=== PATIENT | male | born 1980 | race Caucasian/White ===

== ENCOUNTER 2019-05-04 05:11 | Observation (INO) ==
[2019-05-04] MEDS ORDERED: 0.9 % Sodium Chloride 1,000 ML ONE (06:40)
[2019-05-04] MEDS ORDERED: 0.9 % Sodium Chloride 1,000 ML IVC SCH (06:45)
--- NOTE | 2019-05-04 08:08 | Acute Care Surgery H&P ---
Date of Encounter: 05/04/19 Time of Encounter: 07:15 Assessment and Plan (1) Acute calculous cholecystitis Current Visit: No Status: Acute The assessment and plan as outlined above was discussed with the patient and/or family members who expressed understanding and agreement. All questions were answered. Pt diagnosis of acute cholecystitis with cholelithiasis is discussed. Laparoscopic Cholecystectomy is recommended. Procedure for the surgery, risks and benefits are discussed in detail. Possible known complications for Laparoscopic Cholecystectomy are bleeding, infection, bile duct injury, bile leak, small intestine or stomach injury, stroke, DVT/PE, NC or . Pt understands these risks, which in this case are low. Pt wishes to proceed with surgery as soon as possible. Informed consent is obtained. Pt condition is stable. Surgery is scheduled. (2) HTN (hypertension) Current Visit: Yes Status: Acute The assessment and plan as outlined above was discussed with the patient and/or family members who expressed understanding and agreement. All questions were answered. Continue home meds. Qualifiers: Qualified Code(s): I10 - Essential (primary) hypertension History of Present Illness Chief complaint: RUQ abdominal pain HPI: Mr. Ji is a 38 year old male pt who presents to [facility] ED complaining of RUQ abdominal pain. Pt reports pain is severe and unrelenting. Pain begain two days ago. Pt reports the pain is progressively worsening. Pt reports pain radiates to back and up to right shoulder. Pt reports associated nausea and vomiting. Pt denies CP or SOB. Denies fever. He denies previous "gallbladder attack" in the past. Past Med Surg Social Fam HX - Past Medical History Medical history: arthritis, hypertension Psychiatric history: depression - Past Surgical History Surgical History: herniorrhaphy - Social History Smoking Status: Never smoker Smokeless Tobacco Status: No Alcohol use: none Drug use: none, other Medications and Allergies Allopurinol [Zyloprim 100 MG] 100 mg PO DAILY 04/29/19 [History] HydrOXYzine Pamoate [Vistaril] 50 mg PO Q4-6H PRN #20 capsule 04/29/19 [Rx] Lisinopril [Zestril] 10 mg PO DAILY 04/29/19 [History] Omeprazole 20 mg PO DAILY #14 tablet. 04/29/19 [Rx] Allergy/AdvReac Type Severity Reaction Status Date / Time No Known Allergies Allergy Verified 04/29/19 05:38 Review of Systems All systems PM: The remainder of the systems were reviewed and are negative - Constitutional as per HPI, no anorexia, no chills, no excessive sweating, no fatigue, no fever(s), no malaise, no night sweats, no weakness - EENT Nose, mouth and throat: no dry mouth, no dysphagia, no nasal congestion, no nasal discharge, no sinus pain, no sinus pressure, no sore throat - Cardiovascular no chest pain, no diaphoresis, no dyspnea, no edema - Respiratory no cough, no dyspnea, no wheezing - Gastrointestinal abdominal pain, belching, bloating, nausea, vomiting, no constipation, no di arrhea, no heartburn - Genitourinary no dysuria, no flank pain, no urinary frequency - Musculoskeletal back pain, no joint swelling, no limited range of motion, no neck pain - Integumentary no dry skin, no pruritus, no rash, no wounds, no jaundice - Neurological no confusion, no dizziness, no weakness - Psychiatric anxiety, depression, other (hx of opiate abuse) - Endocrine no fatigue - Hematologic/Lymphatic no easy bleeding, no easy bruising General Surgery Exam Initial Vital Signs Temp Pulse Resp BP Pulse Ox 98.1 F 73 14 117/73 96 05/04/19 07:11 05/04/19 07:11 05/04/19 07:11 05/04/19 07:11 05/04/19 07:11 - General physical appearance no distress, moderate pain (controlled). negative: jaundice - Eyes PERRL, normal ocular movement. negative: icteric - ENT normal mucosa, no congestion. negative: nasal discharge - Neck no masses, trachea midline, no lymphadectomy, no venous distension - Respiratory normal respiratory effort, clear to auscultation - Cardiovascular Cardiovascular exam: Present: RRR. Absent: murmurs - Abdomen Abdomen general surgery: Present: bowel sounds present, soft, tender. Absent: guarding, rebound Abdominal Tenderness: Present: RUQ - Genitourinary Present: normal penis with no external lesions - Integumentary Integumentary general surgery: Present: warm and dry - Neurologic Present: CN 2-12 grossly intact, normal coordination - Musculoskeletal Present: normal posture - Psychiatric Psychiatric general surgery: Present: A&Ox3, appropriate Results - Labs All other labs normal. - Imaging CT scan - abdomen: image reviewed (ABD CT reveals acute cholecystitis) CT scan - pelvis: image reviewed
[2019-05-04] MEDS: Ampicillin/Sulbactam 3,000 MG in 0.9 % Sodium Chloride Mini Bag 100 ML IVPB SCH ×3 (10:23→23:00)
[2019-05-04] MEDS ORDERED: Bupivacaine/EPI 1:200k 0.5%PF 30 ML VIAL ONE (11:41)
[2019-05-04] MEDS ORDERED: Lidocaine -MPF 4% 5 ML AMPUL ONE (11:51)
[2019-05-04] MEDS ORDERED: *HR* Rocuronium Bromide 50 MG/5 ML VIAL ONE (11:51)
[2019-05-04] MEDS ORDERED: Ondansetron 4 MG/2 ML VIAL ONE (11:51)
[2019-05-04] MEDS ORDERED: *HR* Succinylcholine 200 MG/10 ML VIAL IVP ONE (11:51)
[2019-05-04] MEDS ORDERED: Lidocaine -MPF 2% 2 ML VIAL ONE (11:51)
[2019-05-04] MEDS ORDERED: *HR* Propofol 200 MG/20 ML VIAL IVP ONE (11:51)
[2019-05-04] MEDS ORDERED: Dexamethasone 4 MG/ML VIAL ONE (11:51)
[2019-05-04] MEDS ORDERED: *HR* Midazolam HCl 2 MG/2 ML VIAL ONE (11:52)
[2019-05-04] MEDS ORDERED: *HR* FentaNYL (PF) 100 MCG/2 ML VIAL ONE ×2 (11:52→13:22)
[2019-05-04] MEDS ORDERED: Acetaminophen IV 1,000 MG/100 ML INFUS..BTL IVPB SCH (12:00)
[2019-05-04] MEDS ORDERED: Acetaminophen IV 1,000 MG/100 ML INFUS..BTL ONE (12:23)
--- NOTE | 2019-05-04 12:25 | Anesthesia Evaluation PreOp ---
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 04/29/19 [Rx] Allergy/AdvReac Type Severity Reaction Status Date / Time No Known Allergies Allergy Verified 04/29/19 05:38 - Meds/Allergy Pre-op Review Medications Reviewed: Yes Allergies Reviewed: Yes Beta Blockers on Current Med List: No Anesthesia Results - Labs Laboratory Tests 04/29/19 05/04/19 05/04/19 05:53 02:55 02:55 WBC 8.8 Hgb 13.0 D Hct 39.0 Plt Count 211 PT 12.1 INR 1.1 APTT 33.9 Sodium 135 L Potassium 4.2 Chloride 102 Carbon Dioxide 27 BUN 15 Creatinine 0.92 Est GFR ( Amer) > 60 Est GFR (Non-Af Amer) > 60 BUN/Creatinine Ratio 16 Glucose 124 H Calculated Osmolality 282 Calcium 8.8 - Imaging EKG: report reviewed, image reviewed (Sinus rhythm Diffuse ST elevation, early repol pattern or acute pericarditis) Anesthesia Exam Last Vital Signs Temp 97.7 F 05/04/19 10:26 Pulse 73 05/04/19 10:26 Resp 14 05/04/19 10:26 BP 126/76 05/04/19 10:26 Pulse Ox 99 05/04/19 10:26 Weight: 118 kg NPO (# of Hours): > 8 hrs - HEENT Pupil (Motor): Pupils equal, EOMI Mallampati: III Teeth: Normal Oral Opening: Greater than 3 - COMPLIANCE FIELD TECHNICIAN LOC: Oriented - Cardiac Rhythm: Regular Murmur: None - Pulmonary Breath Sounds: bilateral Clear Respiratory Effort: Symmetrical Anesthesia Assess/Plan ASA Score: 3 Level of consciousness: Cooperative Anesthetic Plan: General Monitoring Plan: Standard Monitors Recovery Plan: PACU
[2019-05-04] MEDS ORDERED: *HR* FentaNYL (PF) 100 MCG/2 ML VIAL IVP PRN (12:30)
[2019-05-04] MEDS ORDERED: *HR* Promethazine 25 MG/ML VIAL IVP PRN (12:30)
[2019-05-04] MEDS ORDERED: traMADol 50 MG TABLET PO PRN (12:30)
[2019-05-04] MEDS ORDERED: Isovue-300 50 ML VIAL ONE (12:45)
[2019-05-04] MEDS ORDERED: Ketorolac 30 MG/ML VIAL ONE (13:10)
[2019-05-04] MEDS ORDERED: Neostigmine Methylsulfate 3 MG/3 ML SYRINGE ONE (13:10)
--- NOTE | 2019-05-04 15:01 | Operative Note ---
Date of procedure: 05/04/19 Pre-op diagnosis: Acute cholecystitis with cholelithiasis Post-op diagnosis: same Procedure: Laparoscopic cholecystectomy with attempted intraoperative cholangiogram Complications: None Anesthesia: GETA Surgeon: Ramya Carlson Was there an teaching assistant present: No Estimated blood loss (cc): 150 Specimen: Gallbladder Condition: stable Disposition: PACU Procedure in Detail: This 38 y/o male was taken to the operating room and placed in the supine position. Anterior abdominal wall prepped and draped in usual sterile fashion. A 2 cm incision was made in the infraumbilical area and subcutaneous tissues are dissected down to anterior rectus fascia. Fascia is grasped with a Nargis clamp and stay sutures are placed. The fascia is divided. Posterior rectus fascia and peritoneum were elevated and divided in the same manner. Oksana port is inserted and pneumoperitoneum was achieved. Patient was placed in reverse Trendelenburg position and rotated to the left. Three 5 mm ports are inserted in the right subcostal space under direct visualization after injection of 0.5% Marcaine. Exploration of the intra-abdominal cavity reveals a severely enlarged and indurated gallbladder that is acutely inflammed. The gallbladder is grasped and retracted in cephalad direction. The adherent and edematous omentum is bluntly dissected off of the gallbladder capsule. The gallbladder is grasped and retracted in the lateral direction. The cystic duct was carefully identified, circumferentially dissected, clipped near the neck of the gallbladder. The lumen of the cystic duct is obliterated and it is detemined that a cholangiocatheter would not pass. The IOC part of the operation is foregone. The cystic duct is then double clipped and divided between clips. The cystic artery is also carefully identified and circumferentially dissected. There are both anterior and posterior branches. Each branch is doubly clipped and divided between clips. The gallbladder is resected off the liver bed using electrocautery. Hemostasis was perfected using electrocautery and 3 g of Olu after irrigation. The gallbladder is removed from the intra-abdominal cavity using an Endo Catch bag. The facial incision and skin incision had to be extended to accomodate the removal of the very large GB. Copious irrigation was carried out in the gallbladder fossa and Vazquez's pouch. Pneumoperitoneum was allowed to escape. All ports are removed under direct visualization. The extended fascial incision at the infraumbilical area was closed using 3 [id number] 0 Vicryl sutures. All skin incisions are closed using 4-0 Mo nocryl subcuticular stitches. Steri-Strips are placed. Sterile Band-Aids are placed. Patient tolerated procedure well was taken to PACU in good condition.
--- NOTE | 2019-05-04 15:21 | Anesthesia Evaluation Post Op ---
Date of Encounter: 05/04/19 Time of Encounter: 15:20 - Vital Signs Vital Signs: Last Vital Signs Temp 97.6 F 05/04/19 15:14 Pulse 62 05/04/19 15:14 Resp 16 05/04/19 15:14 BP 149/93 05/04/19 15:14 Pulse Ox 100 05/04/19 15:14 - Lungs Lungs: Clear Ascult./Percussion - Airway Airway: Non-obstructed - Cardiovascular Regular Rate - Mental Status Mental Status: Alert & Oriented, Answers Appropriately - Pain Pain Scale: 3 - Nausea Vomiting Nausea Vomiting: Not Present - Hydration Hydration: NPO - Discharge PostOp Status: Transfer Patient to floor
[2019-05-04] MEDS ORDERED: Ondansetron 4 MG/2 ML VIAL IVP PRN (16:01)
[2019-05-04] MEDS ORDERED: hydrOXYzine pamoate 25 MG CAPSULE PO PRN (16:01)
[2019-05-04] MEDS: traMADol 50 MG TABLET PO PRN ×2 (16:43→22:59)
[2019-05-04] MEDS: Acetaminophen IV 1,000 MG/100 ML INFUS..BTL IVPB SCH ×2 (18:29→22:59)
[2019-05-04] MEDS: 0.9 % Sodium Chloride 1,000 ML IVC SCH (20:16)
[2019-05-04] MEDS ORDERED: Ketorolac 15 MG/ML VIAL IVP PRN (20:34)
[2019-05-04] MEDS ORDERED: Ketorolac 30 MG/ML VIAL IVP ONE (20:34)
[2019-05-05] MEDS: Ampicillin/Sulbactam 3,000 MG in 0.9 % Sodium Chloride Mini Bag 100 ML IVPB SCH ×5 (05:12→23:11)
[2019-05-05] MEDS: Acetaminophen IV 1,000 MG/100 ML INFUS..BTL IVPB SCH ×4 (05:12→21:04)
[2019-05-05] MEDS: traMADol 50 MG TABLET PO PRN (07:58)
[2019-05-05] MEDS ORDERED: *HR* OxyCODONE Oral Soln 5 MG/5 ML UD.LIQ PO ONE (08:12)
[2019-05-05 10:31] LABS: Basophils % 0.1 %; Hematocrit 35.7 % (37.5-50.1); Hemoglobin 11.7 g/dL (12.9-16.9); Immature Granulocytes % 0.4 % (0-4); Lymphocytes # 0.8 K/mcL (0.6-4.6); Lymphocytes % 4.4 %; Mean Corpuscular HGB Conc 32.8 g/dL (31.6-35.5); Mean Corpuscular Hemoglobin 29.3 pg (28.0-33.3); Mean Corpuscular Volume 89.5 fL (83.0-100.0); Mean Platelet Volume 10.4 fL (9.4-12.4); Monocytes # 1.4 K/mcL (0.0-1.3); Monocytes % 7.6 %; Neutrophils # 16.5 K/mcL (1.6-8.9); Platelet Count 210 K/mcL (140-400); Red Blood Count 3.99 M/mcL (4.19-5.50); Red Cell Distribution Width 12.4 % (11.5-14.5); Segmented Neutrophils % 87.5 %; White Blood Count 18.9 K/mcL (4.3-11.1)
[2019-05-05 10:50] LABS: Alanine Aminotransferase 189 Units/L (7-52); Albumin 3.2 g/dL (3.5-5.7); Alkaline Phosphatase 150 Units/L (34-104); Aspartate Amino Transferase 94 Units/L (13-39); BUN/Creatinine Ratio 19 (6-26); Bilirubin,Direct 0.3 mg/dL (0.0-0.2); Bilirubin,Indirect 0.5 mg/dL (0.0-1.2); Bilirubin,Total 0.8 mg/dL (0.3-1.0); Blood Urea Nitrogen 19 mg/dL (6-20); Calcium 8.3 mg/dL (8.6-10.3); Carbon Dioxide 26 mEq/L (23-29); Chloride 101 mEq/L (98-107); Globulin 3.1 g/dL (2.4-3.5); Glucose 135 mg/dL (70-105); Osmolality,Calculated 284 (280-300); Potassium 4.6 mEq/L (3.5-5.1); Sodium 135 mEq/L (136-145); Total Protein 6.3 g/dL (6.4-8.9); eGFR For African Americans > 60 (> 60); eGFR For Non-African Americans > 60 (> 60)
[2019-05-05] MEDS ORDERED: hydrOXYzine pamoate 25 MG CAPSULE PO PRN (11:53)
--- NOTE | 2019-05-05 14:26 | AcuteCareSurgery Progress Note ---
<Sharon Cartwright - Last Filed: 05/05/19 14:37> Date of Encounter: 05/05/19 Time of Encounter: 14:22 - Assessment and Plan (1) Acute calculous cholecystitis Current Visit: No Status: Acute Presented with complaint of right upper quadrant abdominal pain Postop day 1 for laparoscopic cholecystectomy Leukocytosis at 18.9 Antibiotic coverage-Unasyn Pain control-Toradol, tramadol, Ofirmev Consult to anesthesiology for possible block as patient is in recovery for narcotics abuse Nothing by mouth for possible block, patient to resume regular diet afterwards. Increase ambulation We will repeat labs in the morning Plan on discharge tomorrow (2) HTN (hypertension) Current Visit: Yes Status: Acute Continue home medication lisinopril Qualifiers: Hypertension type: essential hypertension Qualified Code(s): I10 - E ssential (primary) hypertension (3) History of substance abuse Current Visit: Yes Status: Acute Patient has a history of opioid abuse He presented from a treatment facility and will return there on discharge, is unable to bring pain medications there after being discharged Will plan on discharge with Tylenol, Motrin Patient will need a list of any controlled substances administered during admission on discharge summary. (4) Gout Current Visit: Yes Status: Chronic History of gout, continue home medication allopurinol Qualifiers: Gout site: unspecified site Gout etiology: unspecified cause Chronicity: chronic Presence of tophus: without tophus Qualified Code(s): M1A.9XX0 - Chronic gout, unspecified, without tophus (tophi) (5) GERD (gastroesophageal reflux disease) Current Visit: Yes Status: Chronic History of GERD Continue home medication omeprazole Qualifiers: Esophagitis presence: without esophagitis Qualified Code(s): K21.9 - Gastro-esophageal reflux disease without esophagitis (6) DVT prophylaxis Current Visit: Yes Status: Acute SCDs Subjective Narrative: Patient seen and examined at bedside today. His pain is well controlled. He is currently in a treatment program for narcotic addiction. He has previously stated that he does not want any opiate medications and will need a list of any opiate medications to report back to his facility on discharge. Discussed pain management options with the patient, he has agreed to one dose of sublingual oxycodone at this time. His facility was contacted and states that they do have a policy that no pain medications be allowed on the premises. Consult to anesthesiology for possible block. Will keep patient today for pain control and discharged tomorrow on Motrin, Tylenol. He states that pain is 8 out of 10, located in right upper quadrant. He is tolerating diet well. He has not yet passed flatus. He denies fever, chills, nausea, vomiting, chest pain, shortness breath, dysuria, calf pain. Objective Vital Signs - Last 8 Hours Temp Pulse Resp BP Pulse Ox 05/05/19 12:11 98.4 F 80 14 120/69 95 05/05/19 07:44 99.2 F 79 15 111/67 96 Intake and Output 05/04/19 05/05/19 05/05/19 23:59 07:59 15:59 Intake Total 1400 / 1400 200 / 300 100 / 300 Output Total 1000 / 1150 Balance 400 / 250 200 / 300 100 / 300 Intake: IV Fluids 1400 / 1400 200 / 300 100 / 300 0.9 % Sodium Chloride 1,000 ML 1000 / 1000 @ 75 mls/hr IVC .[id number] [facility] Rx #:[id number] Ofirmev 1,000 mg/100 ml 1,000 200 / 200 100 / 200 100 / 200 mg In 100 ml @ 400 mls/hr IVPB Q6HR [facility]I Rx#:[id number] Unasyn 3,000 MG In 0.9 % Sodium 200 / 200 100 / 100 Chloride (Mini-Bag +) 100 ML @ 200 mls/hr IVPB Q6H [facility]I Rx#: [id number] Oral 0 / 0 Output: Urine 1000 / 1000 Other: # Voids 2 0 # Bowel Movements 0 0 - General physical appearance well developed, well nourished, moderate distress (Secondary to pain) - Eyes PERRL, normal ocular movement - ENT normal mucosa, no congestion - Neck Neck exam: trachea midline, no venous distension - Respiratory normal expansion, normal respiratory effort, clear to auscultation - Cardiovascular Cardiovascular exam: Present: RRR, no murmurs/rubs/gallops. Absent: JVD - Abdomen Abdomen: Present: bowel sounds present, soft, tender. Absent: guarding, rebound Abdominal Tenderness: RUQ - Incision Incision: Present: clean and dry, intact - Integumentary no rash, no abnormal pigmentation - Neurologic normal coordination, normal sensation - Musculoskeletal normal posture - Psychiatric oriented to time, oriented to person, oriented to place, speech is normal, memory intact - Labs 05/05/19 10:22 05/05/19 10:22 Diabetes panel 05/05/19 Range/Units 10:22 Sodium 135 L (136-145) mEq/L Potassium 4.6 (3.5-5.1) mEq/L Chloride 101 (98-107) mEq/L Carbon Dioxide 26 (23-29) mEq/L BUN 19 (6-20) mg/dL Creatinine 0.98 (0.70-1.30) mg/dL Glucose 135 H (70-105) mg/dL Calcium 8.3 L (8.6-10.3) mg/dL AST 94 H (13-39) Units/L ALT 189 H (7-52) Units/L Alkaline Phosphatase 150 H (34-104) Units/L Albumin 3.2 L (3.5-5.7) g/dL Calcium panel 05/05/19 Range/Units 10:22 Calcium 8.3 L (8.6-10.3) mg/dL Albumin 3.2 L (3.5-5.7) g/dL Pituitary panel 05/05/19 Range/Units 10:22 Sodium 135 L (136-145) mEq/L Potassium 4.6 (3.5-5.1) mEq/L Chloride 101 (98-107) mEq/L Carbon Dioxide 26 (23-29) mEq/L BUN 19 (6-20) mg/dL Creatinine 0.98 (0.70-1.30) mg/dL Glucose 135 H (70-105) mg/dL Calcium 8.3 L (8.6-10.3) mg/dL Adrenal panel 05/05/19 Range/Units 10:22 Sodium 135 L (136-145) mEq/L Potassium 4.6 (3.5-5.1) mEq/L Chloride 101 (98-107) mEq/L Carbon Dioxide 26 (23-29) mEq/L BUN 19 (6-20) mg/dL Creatinine 0.98 (0.70-1.30) mg/dL Glucose 135 H (70-105) mg/dL Calcium 8.3 L (8.6-10.3) mg/dL Total Bilirubin 0.8 (0.3-1.0) mg/dL AST 94 H (13-39) Units/L ALT 189 H (7-52) Units/L Alkaline Phosphatase 150 H (34-104) Units/L Albumin 3.2 L (3.5-5.7) g/dL - VTE Reasons for not Prescribing Prophylaxis: Treatment not Indicated - Low risk for VTE Consult Discharge Plan - Plan Instructions: Laparoscopic Cholecystectomy (DC) Additional Instructions: General Surgical Discharge Instructions 1. No pushing, pulling, or lifting greater than 15 lbs for 3 weeks. 2. You may shower beginning today, but no tub baths, soaking, or swimming for 2 weeks. 3. You may resume driving when you are off narcotics and are safe to react in a car. 4. Take ibuprofen every 8 hours for discomfort. If this does not relieve discomfort, you may take the as needed Percocet. Take narcotics as directed. Do not take more narcotics then directed and do not share your narcotics with any other person. Do not drink alcohol while on narcotics. 5. Take stool softeners (Colace) or a water based laxative (Miralax) while taking narcotics. You may hold for loose stools. 6. Report any fevers greater than 100.5F, increase abdominal discomfort, drainage that looks like pus, increased redness or pain at the surgical site, or any vomiting. 7. Report any pain in the calves, shortness of breath, or rapid heartbeat. 8. Follow-up in the office as directed. 9. If you were prescribed antibiotics, do not stop them without talking to your provider. Referrals: Ramya Renteria [Partnered Physician] - 05/26/19 8:20 am NONE,PCP [Primary Care Provider] - <Micah Castaneda - Last Filed: 05/05/19 16:48> Date of Encounter: 05/05/19 Objective Vital Signs - Last 8 Hours Temp Pulse Resp BP Pulse Ox 05/05/19 15:38 98.0 F 81 16 110/66 94 05/05/19 12:11 98.4 F 80 14 120/69 95 Intake and Output 05/05/19 05/05/19 05/05/19 07:59 15:59 23:59 Intake Total 200 / 500 300 / 500 Balance 200 / 500 300 / 500 Intake: IV Fluids 200 / 500 300 / 500 Ofirmev 1,000 mg/100 ml 1,000 100 / 300 200 / 300 mg In 100 ml @ 400 mls/hr IVPB Q6H [facility]I Rx#:[id number] Unasyn 3,000 MG In 0.9 % Sodium 100 / 200 100 / 200 Chloride (Mini-Bag +) 100 ML @ 200 mls/hr IVPB Q6H [facility]I Rx#: [id number] Oral 0 / 0 Other: # Voids 2 0 # Bowel Movements 0 0 - Labs 05/05/19 10:22 05/05/19 10:22 Diabetes panel 05/05/19 Range/Units 10:22 Sodium 135 L (136-145) mEq/L Potassium 4.6 (3.5-5.1) mEq/L Chloride 101 (98-107) mEq/L Carbon Dioxide 26 (23-29) mEq/L BUN 19 (6-20) mg/dL Creatinine 0.98 (0.70-1.30) mg/dL Glucose 135 H (70-105) mg/dL Calcium 8.3 L (8.6-10.3) mg/dL AST 94 H (13-39) Units/L ALT 189 H (7-52) Units/L Alkaline Phosphatase 150 H (34-104) Units/L Albumin 3.2 L (3.5-5.7) g/dL Calcium panel 05/05/19 Range/Units 10:22 Calcium 8.3 L (8.6-10.3) mg/dL Albumin 3.2 L (3.5-5.7) g/dL Pituitary panel 05/05/19 Range/Units 10:22 Sodium 135 L (136-145) mEq/L Potassium 4.6 (3.5-5.1) mEq/L Chloride 101 (98-107) mEq/L Carbon Dioxide 26 (23-29) mEq/L BUN 19 (6-20) mg/dL Creatinine 0.98 (0.70-1.30) mg/dL Glucose 135 H (70-105) mg/dL Calcium 8.3 L (8.6-10.3) mg/dL Adrenal panel 05/05/19 Range/Units 10:22 Sodium 135 L (136-145) mEq/L Potassium 4.6 (3.5-5.1) mEq/L Chloride 101 (98-107) mEq/L Carbon Dioxide 26 (23-29) mEq/L BUN 19 (6-20) mg/dL Creatinine 0.98 (0.70-1.30) mg/dL Glucose 135 H (70-105) mg/dL Calcium 8.3 L (8.6-10.3) mg/dL Total Bilirubin 0.8 (0.3-1.0) mg/dL AST 94 H (13-39) Units/L ALT 189 H (7-52) Units/L Alkaline Phosphatase 150 H (34-104) Units/L Albumin 3.2 L (3.5-5.7) g/dL - Attending Attestation I examined this patient and my medical decision-making was reviewed with the Resident Physician. I agree with the documented findings, disposition and treatment plan as described except to the extent set forth below. The patient is seen and evaluated on morning rounds with the acute care surgery team. He has very poor pain control. Using a narcotic treatment program and has refused any narcotics. We have maximized nonnarcotic care. We did an extended conversation about this. The patient agrees with limited use of narcotics to control his acute pain and then transition back to nonnarcotic therapy. Incisions are clean and dry. Micah Castaneda MD FACS
--- NOTE | 2019-05-05 14:42 | Event Note ---
Date of Encounter: 05/05/19 Time of Encounter: 14:40 Spoke with Parker, (counselor at [facility]). Per Parker, we will need to call him at number above when patient d/c's tomorrow as he must pick the patient up and transport to rehab center. Pt will need a list with specific date, time, medication, and administration of any narcotics since admission. He should be d/c'd on scheduled ibuprofen and tylenol only. No controlled substances are permitted in rehab.
[2019-05-05] MEDS: Ketorolac 30 MG/ML VIAL IVP SCH ×3 (15:03→23:10)
[2019-05-05] MEDS: 0.9 % Sodium Chloride 1,000 ML IVC SCH (19:52)
[2019-05-06] MEDS: Acetaminophen IV 1,000 MG/100 ML INFUS..BTL IVPB SCH ×2 (03:09→09:17)
[2019-05-06] MEDS: Ketorolac 30 MG/ML VIAL IVP SCH (05:23)
[2019-05-06] MEDS: Ampicillin/Sulbactam 3,000 MG in 0.9 % Sodium Chloride Mini Bag 100 ML IVPB SCH (05:23)
[2019-05-06 05:30] LABS: Basophils % 0.3 %; Eosinophils # 0.1 K/mcL (0.0-0.6); Eosinophils % 1.2 %; Hematocrit 33.8 % (37.5-50.1); Hemoglobin 10.9 g/dL (12.9-16.9); Immature Granulocytes % 0.4 % (0-4); Lymphocytes # 1.4 K/mcL (0.6-4.6); Lymphocytes % 13.2 %; Mean Corpuscular HGB Conc 32.2 g/dL (31.6-35.5); Mean Corpuscular Hemoglobin 29.6 pg (28.0-33.3); Mean Corpuscular Volume 91.8 fL (83.0-100.0); Mean Platelet Volume 10.9 fL (9.4-12.4); Monocytes # 0.9 K/mcL (0.0-1.3); Monocytes % 8.8 %; Platelet Count 199 K/mcL (140-400); Red Blood Count 3.68 M/mcL (4.19-5.50); Red Cell Distribution Width 12.8 % (11.5-14.5); Segmented Neutrophils % 76.1 %; White Blood Count 10.5 K/mcL (4.3-11.1)
[2019-05-06 06:42] LABS: Alanine Aminotransferase 165 Units/L (7-52); Albumin/Globulin Ratio 1.1 (1.1-2.2); Alkaline Phosphatase 144 Units/L (34-104); Aspartate Amino Transferase 91 Units/L (13-39); BUN/Creatinine Ratio 20 (6-26); Bilirubin,Total 0.6 mg/dL (0.3-1.0); Blood Urea Nitrogen 24 mg/dL (6-20); Calcium 8.2 mg/dL (8.6-10.3); Carbon Dioxide 30 mEq/L (23-29); Chloride 102 mEq/L (98-107); Globulin 2.8 g/dL (2.4-3.5); Glucose 113 mg/dL (70-105); Osmolality,Calculated 293 (280-300); Potassium 4.2 mEq/L (3.5-5.1); Sodium 139 mEq/L (136-145); Total Protein 5.8 g/dL (6.4-8.9); eGFR For African Americans > 60 (> 60); eGFR For Non-African Americans > 60 (> 60)
[2019-05-06 06:52] VITALS: BP 105/67
--- NOTE | 2019-05-06 07:53 | Discharge Summary ---
<Sharon Cartwright - Last Filed: 05/06/19 09:19> - NOTES TO OUTPATIENT PROVIDER Notes to Outpatient Provider: Patient underwent laparoscopic cholecystectomy on 05/04/19. New medications include ciprofloxacin for 5 days, Motrin, Tylenol. Patient to follow-up with acute care surgery in 2 weeks. Orders not resulted at time of discharge: Pending orders 05/04/19 13:03 Surgical Pathology [PTH] Routine Date of Encounter: 05/06/19 Time of Encounter: 07:53 - Discharge Diagnosis (1) Acute calculous cholecystitis Priority: Primary Status: Acute (2) HTN (hypertension) Priority: Secondary Status: Acute Qualifiers: Hypertension type: essential hypertension Qualified Code(s): I10 - Essential (primary) hypertension (3) History of substance abuse Priority: Secondary Status: Acute (4) Gout Priority: Secondary Status: Chronic Qualifiers: Gout site: unspecified site Gout etiology: unspecified cause Chronicity: chronic Presence of tophus: without tophus Qualified Code(s): M1A.9XX0 - Chronic gout, unspecified, without tophus (tophi) (5) GERD (gastroesophageal reflux disease) Priority: Secondary Status: Chronic Qualifiers: Esophagitis presence: without esophagitis Qualified Code(s): K21.9 - Gastro-esophageal reflux disease without esophagitis (6) DVT prophylaxis Priority: Secondary Status: Acute General Surgery Exam Initial Vital Signs Temp Pulse Resp BP Pulse Ox 98.1 F 73 14 117/73 96 05/04/19 07:11 05/04/19 07:11 05/04/19 07:11 05/04/19 07:11 05/04/19 07:11 - General physical appearance well developed, well nourished, no distress - Eyes PERRL, normal ocular movement - ENT normal nares, normal mucosa, no congestion - Neck trachea midline, no venous distension - Respiratory normal expansion, normal respiratory effort, clear to auscultation - Cardiovascular Cardiovascular exam: Present: RRR, no murmurs/rubs/gallops. Absent: JVD - Abdomen Abdomen general surgery: Present: bowel sounds present, soft, tender Abdominal Tenderness: Present: RUQ (Mild) - Incision Incision: Present: clean and dry, intact. Absent: erythema - Integumentary Integumentary general surgery: Present: warm and dry, no abnormal pigmentation - Neurologic Present: CN 2-12 grossly intact, normal coordination, normal sensation - Musculoskeletal Present: normal gait, normal posture - Psychiatric Psychiatric general surgery: Present: appropriate, oriented to person, oriented to place, oriented to time, speech is normal, memory intact - Hospital Course Hospital course: Mr. Ji is a 38 year old male who presented with chief complaint of right upper quadrant abdominal pain. He has a past medical history of opiate abuse, he is currently undergoing treatment at [facility], hypertension, gout, depression, GERD. He was afebrile on presentation and labs were significant for leukocytosis of 18.9 as well as mildly increased direct bilirubin, AST, ALT, alkaline phosphatase and phosphatase. Abdominal CT was performed which revealed a distended gallbladder with wall thickening and at least one large gallstone suggestive of acute cholecystitis. The patient was adamant that he did not want any narcotics over his admission as he is currently in recovery. The patient was admitted, started on Unasyn, and taken to the OR for a laparoscopic cholecystectomy with attempted intraoperative cholangiogram on 05/04/19. The patient did well postoperatively however on postoperative day one his pain was not controlled and he agreed to one dose of oxycodone. Anesthesiology was contacted and attempt to have a pain block performed however they were unable to do this. The patient's leukocytosis resolved, WBC currently 10.5. Vital signs are stable and the patient is well for discharge back to his facility. New medications include Motrin, Tylenol, ciprofloxacin. Patient to follow up with Dr. Bennie Carlson in 2 weeks. - Time Spent with Patient Total time spent providing and/or coordinating discharge services: - Discharge Medications Prescriptions: New Ciprofloxacin [Cipro] 500 mg PO BID 5 Days #10 tablet Ibuprofen [Motrin] 800 mg PO Q8HR 5 Days #15 tablet Acetaminophen [Tylenol] 325 mg PO Q4HR #30 tablet Continued Allopurinol [Zyloprim 300 MG] 300 mg PO DAILY Lisinopril [Zestril] 10 mg PO DAILY Omeprazole 20 mg PO DAILY #14 tablet. HydrOXYfernie Pamoate [Vistaril] 50 mg PO Q4-6H PRN #20 capsule PRN Reason: Rash Home Medications: HydrOXYzine Pamoate [Vistaril] 50 mg PO Q4-6H PRN #20 capsule 04/29/19 [Rx] Lisinopril [Zestril] 10 mg PO DAILY 04/29/19 [History] Omeprazole 20 mg PO DAILY #14 tablet. 04/29/19 [Rx] Allopurinol [Zyloprim 300 MG] 300 mg PO DAILY 05/04/19 [History] Acetaminophen [Tylenol] 325 mg PO Q4HR #30 tablet 05/06/19 [Rx] Ciprofloxacin [Cipro] 500 mg PO BID 5 Days #10 tablet 05/06/19 [Rx] Ibuprofen [Motrin] 800 mg PO Q8HR 5 Days #15 tablet 05/06/19 [Rx] Allergies/Adverse Reactions: Allergy/AdvReac Type Severity Reaction Status Date / Time No Known Allergies Allergy Verified 04/29/19 05:38 Date of admission: 05/04/19 06:19 Primary care physician: PCP NONE Consults: 05/04/19 07:48 Consult to Pattern Repair Person [CONS] Stat Reason for SW Consult: needs access to laptop to contact family 05/05/19 11:47 Consult to Anesthesiology [CONS] Stat Consulting Provider: [facility] [place] Reason for Consult: postoperative pain control (possible block); pt is recovering narcotic additction and wishes to not have narcotics but it in pain. He cannot d/c on any controlled substances/ Reviewed with [employer]ER who recommends consult placement for possible block per anesthesiology. Time Notified: 11:49 Call Completed: Yes Discharging clinician: Sharon Cartwright Anticipated date of discharge: 05/06/19 Labs on day of discharge: Labs from last 24 hours 05/06/19 05/06/19 05/05/19 04:47 04:47 10:22 WBC 10.5 RBC 3.68 L Hgb 10.9 L Hct 33.8 L MCV 91.8 MCH 29.6 MCHC 32.2 RDW 12.8 Plt Count 199 MPV 10.9 Immature Gran % 0.4 Seg Neutrophils % 76.1 Lymphocytes % 13.2 Monocytes % 8.8 Eosinophils % 1.2 Basophils % 0.3 Neutrophils # 8.0 Lymphocytes # 1.4 Monocytes # 0.9 Eosinophils # 0.1 Basophils # 0.0 Sodium 139 135 L Potassium 4.2 4.6 Chloride 102 101 Carbon Dioxide 30 H 26 BUN 24 H 19 Creatinine 1.19 0.98 Est GFR ( Amer) > 60 > 60 Est GFR (Non-Af Amer) > 60 > 60 BUN/Creatinine Ratio 20 19 Glucose 113 H 135 H Calculated Osmolality 293 284 Calcium 8.2 L 8.3 L Total Bilirubin 0.6 0.8 Direct Bilirubin 0.3 H Indirect Bilirubin 0.5 AST 91 H 94 H ALT 165 H 189 H Alkaline Phosphatase 144 H 150 H Serum Total Protein 5.8 L 6.3 L Albumin 3.0 L 3.2 L Globulin 2.8 3.1 Albumin/Globulin Ratio 1.1 1.0 L 05/05/19 10:22 WBC 18.9 H D RBC 3.99 L Hgb 11.7 L Hct 35.7 L MCV 89.5 MCH 29.3 MCHC 32.8 RDW 12.4 Plt Count 210 MPV 10.4 Immature Gran % 0.4 Seg Neutrophils % 87.5 Lymphocytes % 4.4 Monocytes % 7.6 Eosinophils % 0.0 Basophils % 0.1 Neutrophils # 16.5 H Lymphocytes # 0.8 Monocytes # 1.4 H Eosinophils # 0.0 Basophils # 0.0 Sodium Potassium Chloride Carbon Dioxide BUN Creatinine Est GFR ( Amer) Est GFR (Non-Af Amer) BUN/Creatinine Ratio Glucose Calculated Osmolality Calcium Total Bilirubin Direct Bilirubin Indirect Bilirubin AST ALT Alkaline Phosphatase Serum Total Protein Albumin Globulin Albumin/Globulin Ratio - Patient Status Disposition: Home, Self-Care Condition: Good Functional capacity at discharge: independent ambulation Overall status at discharge: patient is progressing back to baseline - Discharge Instructions Instructions: Chest Pain (DC), Laparoscopic Cholecystectomy (DC) Follow Up With: Ramya Renteria [Partnered Physician] - 05/26/19 8:20 am Sharon Cartwright MD [Resident] - Additional Instructions: General Surgical Discharge Instructions 1. No pushing, pulling, or lifting greater than 15 lbs for 3 weeks. 2. You may shower beginning today, but no tub baths, soaking, or swimming for 2 weeks. 3. You may resume driving when you are off narcotics and are safe to react in a car. 4. Take ibuprofen every 8 hours for discomfort. If this does not relieve discomfort, you may take the as needed Percocet. Take narcotics as directed. Do not take more narcotics then directed and do not share your n arcotics with any other person. Do not drink alcohol while on narcotics. 5. Take stool softeners (Colace) or a water based laxative (Miralax) while taking narcotics. You may hold for loose stools. 6. Report any fevers greater than 100.5F, increase abdominal discomfort, drainage that looks like pus, increased redness or pain at the surgical site, or any vomiting. 7. Report any pain in the calves, shortness of breath, or rapid heartbeat. 8. Follow-up in the office as directed. 9. If you were prescribed antibiotics, do not stop them without talking to your provider. Narcotics received over admission Ultram 100 mg given 05/04/19 at 7:58 AM Fentanyl 100 g 05/04/19 at 12:30 PM Oxycodone 10 mg 05/05/19 at 8:13 AM Also received: Midazolam 2mg 05/04/19 11:53 am Ketamine 50 mg 05/04/19 12:24 pm - Diet and Activity Activity: resume usual activities as tolerated Diet: advance to your usual diet <Keaton Chand - Last Filed: 05/06/19 17:00> Orders not resulted at time of discharge: Pending orders 05/04/19 13:03 Surgical Pathology [PTH] Routine Date of Encounter: 05/06/19 General Surgery Exam Initial Vital Signs Temp Pulse Resp BP Pulse Ox 98.1 F 73 14 117/73 96 05/04/19 07:11 05/04/19 07:11 05/04/19 07:11 05/04/19 07:11 05/04/19 07:11 - Hospital Course Hospital course: Mr. Ji is a 38 year old male - Time Spent with Patient Total time spent providing and/or coordinating discharge services: Date of admission: 05/04/19 06:19 Primary care physician: PCP NONE Consults: 05/04/19 07:48 Consult to Pattern Repair Person [CONS] Stat Reason for SW Consult: needs access to laptop to contact family 05/05/19 11:47 Consult to Anesthesiology [CONS] Stat Consulting Provider: [facility] [place] Reason for Consult: postoperative pain control (possible block); pt is recovering narcotic additction and wishes to not have narcotics but it in pain. He cannot d/c on any controlled substances/ Reviewed with [employer] who recommends consult placement for possible block per anesthesiology. Time Notified: 11:49 Call Completed: Yes Labs on day of discharge: Labs from last 24 hours 05/06/19 05/06/19 04:47 04:47 WBC 10.5 RBC 3.68 L Hgb 10.9 L Hct 33.8 L MCV 91.8 MCH 29.6 MCHC 32.2 RDW 12.8 Plt Count 199 MPV 10.9 Immature Gran % 0.4 Seg Neutrophils % 76.1 Lymphocytes % 13.2 Monocytes % 8.8 Eosinophils % 1.2 Basophils % 0.3 Neutrophils # 8.0 Lymphocytes # 1.4 Monocytes # 0.9 Eosinophils # 0.1 Basophils # 0.0 Sodium 139 Potassium 4.2 Chloride 102 Carbon Dioxide 30 H BUN 24 H Creatinine 1.19 Est GFR ( Amer) > 60 Est GFR (Non-Af Amer) > 60 BUN/Creatinine Ratio 20 Glucose 113 H Calculated Osmolality 293 Calcium 8.2 L Total Bilirubin 0.6 AST 91 H ALT 165 H Alkaline Phosphatase 144 H Serum Total Protein 5.8 L Albumin 3.0 L Globulin 2.8 Albumin/Globulin Ratio 1.1 - Attending Attestation patient seen and examined. i have reviewed all labs, imaging, and notes. i have discussed the case with the resident in detail. i agree with the above assessment and plan.
== END 2019-05-06 12:10 | disposition home or self-care (01) ==
LOC: 3ANU
PROVIDERS: ADMIT Surgery; ATTEND Surgery

== ENCOUNTER 2019-05-06 20:14 | Observation (INO) ==
[2019-05-06] MEDS ORDERED: 0.9 % Sodium Chloride 1,000 ML IVC ONE (20:33)
[2019-05-06] MEDS ORDERED: Ondansetron 4 MG/2 ML VIAL IVP STA (20:33)
[2019-05-06] MEDS ORDERED: *HR* FentaNYL (PF) 100 MCG/2 ML VIAL IVP ONE (20:33)
[2019-05-06 21:02] LABS: Basophils % 0.4 %; Eosinophils # 0.3 K/mcL (0.0-0.6); Eosinophils % 2.8 %; Hematocrit 35.7 % (37.5-50.1); Hemoglobin 11.5 g/dL (12.9-16.9); Immature Granulocytes % 0.6 % (0-4); Lymphocytes # 1.2 K/mcL (0.6-4.6); Lymphocytes % 12.2 %; Mean Corpuscular HGB Conc 32.2 g/dL (31.6-35.5); Mean Corpuscular Hemoglobin 29.5 pg (28.0-33.3); Mean Corpuscular Volume 91.5 fL (83.0-100.0); Monocytes # 1.1 K/mcL (0.0-1.3); Monocytes % 10.9 %; Neutrophils # 7.3 K/mcL (1.6-8.9); Platelet Count 251 K/mcL (140-400); Red Cell Distribution Width 12.8 % (11.5-14.5); Segmented Neutrophils % 73.1 %; White Blood Count 9.9 K/mcL (4.3-11.1)
--- NOTE | 2019-05-06 21:07 | Emergency Department Note ---
Disposition Clinical Impression: Biloma following surgery Qualifiers: Encounter type: initial encounter Qualified Code(s): T81.89XA - Other complications of procedures, not elsewhere classified, initial encounter Abdominal pain Qualifiers: Abdominal location: generalized Qualified Code(s): R10.84 - Generalized abdomi nal pain Nausea and vomiting Qualifiers: Vomiting type: unspecified Vomiting Intractability: non-intractable Qualified Code(s): R11.2 - Nausea with vomiting, unspecified Disposition: Admitted As Inpatient Condition: Good Time of Disposition: 01:37 Abdominal Pain HPI - General Chief Complaint: ED Abdominal Pain Stated Complaint: NV, Pain, Kidney Removal 05/05 Time Seen by Provider: 05/06/19 20:27 Source: patient Mode of arrival: ambulatory Limitations: no limitations Nursing Notes Reviewed: Yes Vital Signs Reviewed: Yes - History of Present Illness HPI Narrative: 38 yo male who was recently discharged from the hospital after gallbladder removal presents to the emergency department with nausea and vomiting as well as abdominal pain. Patient states that he spent the past 2 days in the hospital was discharged today. Patient states he went home and tried to eat some cheese but then felt nauseous and threw up. Later today he tried to eat some cereal with milk but also got nauseous and threw that up. His abdomen has been signifi cantly tender since then. He states he was only discharged on Tylenol and ibuprofen without any other pain medication or medication for his nausea. He was able to eat while he was in the hospital he states that because "they were giving me all sorts of drugs". Patient denies fevers, chest pain, shortness of breath, difficulty with urination at this time. Pain Scale: 8 - Related Data Home Medications Medication Instructions Recorded Confirmed Lisinopril [Zestril] 10 mg PO DAILY 04/29/19 05/06/19 Allopurinol [Zyloprim 300 MG] 300 mg PO DAILY 05/04/19 05/06/19 Previous Rx's Medication Instructions Recorded HydrOXYzine Pamoate [Vistaril] 50 mg PO Q4-6H PRN #20 capsule 04/29/19 Omeprazole 20 mg PO DAILY #14 tablet. 04/29/19 Acetaminophen [Tylenol] 325 mg PO Q4HR #30 tablet 05/06/19 Ciprofloxacin [Cipro] 500 mg PO BID 5 Days #10 tablet 05/06/19 Ibuprofen [Motrin] 800 mg PO Q8HR 5 Days #15 tablet 05/06/19 Allergies Allergy/AdvReac Type Severity Reaction Status Date / Time No Known Allergies Allergy Verified 05/06/19 21:17 All systems ED: reviewed and negative except as stated. Review of Systems: As Per HPI Constitutional: Denies: fever, chills, weakness Cardiovascular: Denies: chest pain, palpitations, dyspnea on exertion Respiratory: Denies: cough, dyspnea, wheezes Gastrointestinal: Reports: abdominal pain, nausea, vomiting. Denies: diarrhea, constipation, hematemesis Genitourinary: Denies: dysuria, hematuria Musculoskeletal: Denies: back pain, neck pain Integumentary: Denies: rash Neurological: Denies: headache Endocrine: Denies: fatigue Abdominal Pain PMH - Past Medical History Medical history: Reports: arthritis, hypertension, kidney stones Male Surgical History: Reports: herniorrhaphy Psychiatric history: Reports: depression - Social History Smoking status: Never smoker Alcohol use: Reports: none Drug use: Reports: none, other Physical Exam - General Limitations: no limitations General appearance: alert, in distress (mild distress secondary to pain) - Head Head exam: atraumatic, normocephalic - Eye Eye exam: Present: normal appearance, PERRL, EOMI - ENT ENT exam: normal exam, normal oropharynx - Neck Neck exam: Present: normal inspection. Absent: tenderness, lymphadenopathy - Chest Chest inspection: Present: normal inspection. Absent: tenderness, rash - Respiratory Respiratory exam: Present: normal lung sounds bilaterally. Absent: wheezes - Cardiovascular Cardiovascular exam: Present: normal rhythm, tachycardia - Abdominal Exam Abdominal exam: Present: soft, tenderness, guarding (voluntary), other (Well healing postsurgical laparoscopic suture sites without active drainage or surrounding erythema). Absent: distention, rebound, rigidity Abdominal tenderness: Present: diffuse, mild - Extremities Exam Extremities exam: Present: normal inspection. Absent: tenderness, pedal edema - Neurological Exam Neurological exam: Present: alert, oriented X3 - Psychiatric Psychiatric exam: Present: anxious - Skin Skin exam: Present: warm, dry, intact Course Vital Signs Temperature 97.2 F L 05/06/19 20:17 Pulse Rate 101 05/06/19 20:17 Respiratory Rate 16 05/06/19 20:17 Blood Pressure 107/72 05/06/19 20:17 O2 Sat by Pulse Oximetry 98 05/06/19 20:17 Temperature 98.6 F 05/07/19 11:48 Pulse Rate 74 05/07/19 11:48 Respiratory Rate 16 05/07/19 11:48 Blood Pressure 132/84 05/07/19 11:48 O2 Sat by Pulse Oximetry 98 05/07/19 11:48 Oxygen Delivery Oxygen Delivery Room Air Abdominal Pain - MDM Narrative Medical decision making narrative: Patient presents with abdominal pain, nausea and vomiting after having his gallbladder removed yesterday and discharged from the hospital today. Patient will be given fentanyl, Zofran, fluids and we will repeat some basic lab work here. 2139 - patient's lab work has returned at the same levels as from when he was discharged earlier today. Patient is just not receiving his pain medication. We will call surgery to determine if they want additional imaging. 2144 - spoke with Dr. Chand who is recommending a CT scan of the patient's abd omen with IV and oral contrast. 34 - CT scan of the patient's abdomen demonstrates a fluid collection near the liver that could represent a biloma/bile leak or less likely infection. We will consult with Dr. Chand again to determine plan of care. 5 - Dr. Chand is agreeable with admission of the patient to the surgery team to take him to surgery later today. Patient's pain has been well controlled and he has no complaints at this time. He is agreeable with admission for further procedures. He does not have any questions or requests at this time. - Medical Records Medical records reviewed: Yes I reviewed the patient's medical records. - Lab Data Lab results reviewed: Yes I reviewed the patient's lab results. Result diagrams: 05/06/19 20:49 05/06/19 20:49 Lab Results 05/06/19 05/06/19 Range/Units 20:49 20:49 WBC 9.9 (4.3-11.1) K/mcL RBC 3.90 L (4.19-5.50) M/mcL Hgb 11.5 L (12.9-16.9) g/dL Hct 35.7 L (37.5-50.1) % MCV 91.5 (83.0-100.0) fL MCH 29.5 (28.0-33.3) pg MCHC 32.2 (31.6-35.5) g/dL RDW 12.8 (11.5-14.5) % Plt Count 251 (140-400) K/mcL MPV 10.0 (9.4-12.4) fL Immature Gran % 0.6 (0-4) % Seg Neutrophils % 73.1 % Lymphocytes % 12.2 % Monocytes % 10.9 % Eosinophils % 2.8 % Basophils % 0.4 % Neutrophils # 7.3 (1.6-8.9) K/mcL Lymphocytes # 1.2 (0.6-4.6) K/mcL Monocytes # 1.1 (0.0-1.3) K/mcL Eosinophils # 0.3 (0.0-0.6) K/mcL Basophils # 0.0 (0.0-0.2) K/mcL Sodium 141 (136-145) mEq/L Potassium 4.7 (3.5-5.1) mEq/L Chloride 106 (98-107) mEq/L Carbon Dioxide 30 H (23-29) mEq/L BUN 22 H (6-20) mg/dL Creatinine 0.92 (0.70-1.30) mg/dL Est GFR ( Amer) > 60 (> 60) Est GFR (Non-Af Amer) > 60 (> 60) BUN/Creatinine Ratio 24 (6-26) Glucose 117 H (70-105) mg/dL Calculated Osmolality 296 (280-300) Calcium 8.5 L (8.6-10.3) mg/dL Total Bilirubin 0.6 (0.3-1.0) mg/dL AST 112 H (13-39) Units/L ALT 195 H (7-52) Units/L Alkaline Phosphatase 178 H (34-104) Units/L Serum Total Protein 6.4 (6.4-8.9) g/dL Albumin 3.2 L (3.5-5.7) g/dL Globulin 3.2 (2.4-3.5) g/dL Albumin/Globulin Ratio 1.0 L (1.1-2.2) Lipase 26 (11-82) Units/L - Radiology Data Radiology results reviewed: Yes I reviewed the patient's radiology results. Attestation Statement - Attestation Attestation: I have seen this patient with the resident physician, I have personally evaluated this patient. I had reviewed the chart and document dictation by the resident physician and aM in agreement with the information documented by the resident physician. Please see documentation by the resident physician for complete chart including past medical history, family medical history, review of systems, current history and physical and laboratory and imaging studies. I was present for all procedures, provided direct supervision for all procedures, was present for the entirety of all procedures and provided direct guidance during the procedures. Please see documentation by the resident physic bran for any procedures performed. I have reviewed all interpretations of EKGs, and reviewed all EKGs performed on patient's as well. I have also reviewed reports of imaging as provided by radiology.
[2019-05-06 21:21] LABS: Alanine Aminotransferase 195 Units/L (7-52); Albumin 3.2 g/dL (3.5-5.7); Alkaline Phosphatase 178 Units/L (34-104); Aspartate Amino Transferase 112 Units/L (13-39); BUN/Creatinine Ratio 24 (6-26); Bilirubin,Total 0.6 mg/dL (0.3-1.0); Blood Urea Nitrogen 22 mg/dL (6-20); Calcium 8.5 mg/dL (8.6-10.3); Carbon Dioxide 30 mEq/L (23-29); Chloride 106 mEq/L (98-107); Globulin 3.2 g/dL (2.4-3.5); Glucose 117 mg/dL (70-105); Lipase 26 Units/L (11-82); Osmolality,Calculated 296 (280-300); Potassium 4.7 mEq/L (3.5-5.1); Sodium 141 mEq/L (136-145); Total Protein 6.4 g/dL (6.4-8.9); eGFR For African Americans > 60 (> 60); eGFR For Non-African Americans > 60 (> 60)
[2019-05-06] MEDS ORDERED: Isovue-370 500 ML BOTTLE IVP ONE (21:43)
--- NOTE | 2019-05-06 22:36 | Emergency Department Note ---
Disposition Clinical Impression: Pyelonephritis Disposition: Home, Self-Care Condition: Good Referrals: NONE,PCP [Primary Care Provider] - Forms: ED Satisfaction Letter, Work/School Release Time of Disposition: 22:36 Abdominal Pain HPI - General Chief Complaint: ED Abdominal Pain Stated Complaint: NV, Pain, R Kidney Removal 05/05 Time Seen by Provider: 05/06/19 20:27 Source: patient Mode of arrival: ambulatory Nursing Notes Reviewed: Yes Vital Signs Reviewed: Yes - History of Present Illness Pain Scale: 8 - Related Data Home Medications Medication Instructions Recorded Confirmed Lisinopril [Zestril] 10 mg PO DAILY 04/29/19 05/06/19 Allopurinol [Zyloprim 300 MG] 300 mg PO DAILY 05/04/19 05/06/19 Previous Rx's Medication Instructions Recorded HydrOXYzine Pamoate [Vistaril] 50 mg PO Q4-6H PRN #20 capsule 04/29/19 Omeprazole 20 mg PO DAILY #14 tablet. 04/29/19 Acetaminophen [Tylenol] 325 mg PO Q4HR #30 tablet 05/06/19 Ciprofloxacin [Cipro] 500 mg PO BID 5 Days #10 tablet 05/06/19 Ibuprofen [Motrin] 800 mg PO Q8HR 5 Days #15 tablet 05/06/19 Allergies Allergy/AdvReac Type Severity Reaction Status Date / Time No Known Allergies Allergy Verified 05/06/19 21:17 Constitutional: Denies: fever, chills, weakness Cardiovascular: Denies: chest pain, palpitations, dyspnea on exertion Respiratory: Denies: cough, dyspnea, wheezes Gastrointestinal: Reports: abdominal pain, nausea, vomiting. Denies: diarrhea, constipation, hematemesis Genitourinary: Denies: dysuria, hematuria Musculoskeletal: Denies: back pain, neck pain Integumentary: Denies: rash Neurological: Denies: headache Endocrine: Denies: fatigue Abdominal Pain PMH - Past Medical History Medical history: Reports: arthritis, hypertension, kidney stones Male Surgical History: Reports: herniorrhaphy Psychiatric history: Reports: depression - Social History Smoking status: Never smoker Alcohol use: Reports: none Drug use: Reports: none, other Physical Exam - General Limitations: no limitations General appearance: alert, in distress (mild distress secondary to pain) Course Vital Signs Temperature 97.2 F L 05/06/19 20:17 Pulse Rate 101 05/06/19 20:17 Respiratory Rate 16 05/06/19 20:17 Blood Pressure 107/72 05/06/19 20:17 O2 Sat by Pulse Oximetry 98 05/06/19 20:17 Temperature 97.2 F L 05/06/19 20:17 Pulse Rate 96 05/06/19 22:05 Respiratory Rate 20 05/06/19 22:05 Blood Pressure 94/83 05/06/19 22:05 O2 Sat by Pulse Oximetry 98 05/06/19 22:05 Oxygen Delivery Oxygen Delivery Room Air Abdominal Pain - Lab Data Result diagrams: 05/06/19 20:49 05/06/19 20:49 Lab Results 05/06/19 05/06/19 Range/Units 20:49 20:49 WBC 9.9 (4.3-11.1) K/mcL RBC 3.90 L (4.19-5.50) M/mcL Hgb 11.5 L (12.9-16.9) g/dL Hct 35.7 L (37.5-50.1) % MCV 91.5 (83.0-100.0) fL MCH 29.5 (28.0-33.3) pg MCHC 32.2 (31.6-35.5) g/dL RDW 12.8 (11.5-14.5) % Plt Count 251 (140-400) K/mcL MPV 10.0 (9.4-12.4) fL Immature Gran % 0.6 (0-4) % Seg Neutrophils % 73.1 % Lymphocytes % 12.2 % Monocytes % 10.9 % Eosinophils % 2.8 % Basophils % 0.4 % Neutrophils # 7.3 (1.6-8.9) K/mcL Lymphocytes # 1.2 (0.6-4.6) K/mcL Monocytes # 1.1 (0.0-1.3) K/mcL Eosinophils # 0.3 (0.0-0.6) K/mcL Basophils # 0.0 (0.0-0.2) K/mcL Sodium 141 (136-145) mEq/L Potassium 4.7 (3.5-5.1) mEq/L Chloride 106 (98-107) mEq/L Carbon Dioxide 30 H (23-29) mEq/L BUN 22 H (6-20) mg/dL Creatinine 0.92 (0.70-1.30) mg/dL Est GFR ( Amer) > 60 (> 60) Est GFR (Non-Af Amer) > 60 (> 60) BUN/Creatinine Ratio 24 (6-26) Glucose 117 H (70-105) mg/dL Calculated Osmolality 296 (280-300) Calcium 8.5 L (8.6-10.3) mg/dL Total Bilirubin 0.6 (0.3-1.0) mg/dL AST 112 H (13-39) Units/L ALT 195 H (7-52) Units/L Alkaline Phosphatase 178 H (34-104) Units/L Serum Total Protein 6.4 (6.4-8.9) g/dL Albumin 3.2 L (3.5-5.7) g/dL Globulin 3.2 (2.4-3.5) g/dL Albumin/Globulin Ratio 1.0 L (1.1-2.2) Lipase 26 (11-82) Units/L Attestation Statement - Attestation Attestation: I have seen this patient with the resident physician, I have personally evaluated this patient. I had reviewed the chart and document dictation by the resident physician and aM in agreement with the information documented by the resident physician. Please see documentation by the resident physician for c omplete chart including past medical history, family medical history, review of systems, current history and physical and laboratory and imaging studies. I was present for all procedures, provided direct supervision for all procedures, was present for the entirety of all procedures and provided direct guidance during the procedures. Please see documentation by the resident physician for any procedures performed. I have reviewed all interpretations of EKGs, and reviewed all EKGs performed on patient's as well. I have also reviewed reports of imaging as provided by radiology. Patient presented emergency department with chief complaint of right flank pain. She states that she has had some urinary hesitancy for the last few days, then today she started having significantly increasing right-sided flank pain which reminded her of when she had a kidney stone, with an infection previously. She has had some subjective fevers but no documented fever she denies headache neck pain chest pain or shortness of breath. She denies vaginal discharge abnormal vaginal bleeding or any other concerns. Physical examination she is alert oriented 3 nontoxic in appearance cranial nerves are intact. Lungs are clear. Heart is regular. Abdomen reveals some very mild right-sided tenderness but moderate right-sided CVA tenderness. No rebound guarding or peritoneal sign. Skin is warm dry without rash or petechiae no evidence of zoster. Basic laboratory studies were within acceptable limits. Urinalysis consistent with UTI with positive nitrites positive Estrace positive white blood cells positive bacteria no CVAT red blood cells. CT scan of the abdomen and pelvis showed no evidence of stone no evidence of hydro-. Patient has symptoms highly consistent with pyelonephritis she was given a dose of IV Rocephin she is tolerating by mouth fluid she is hemodynamically within acceptable limits without fever without significant leukocytosis, I feel she is stable for discharge home with 2 weeks of antibiotics for pyelonephritis, with very strict return precautions. Patient is comfortable with this plan. She was given IV fluids IV Toradol and by mouth Tylenol here, she states that she does not want any narcotics as she does have a history of prior drug addiction, which she actually thinks stemming from receiving oral pain medications from her last kidney stone.
[2019-05-07] MEDS ORDERED: Ondansetron 4 MG/2 ML VIAL IVP PRN (01:37)
[2019-05-07] MEDS ORDERED: 0.9 % Sodium Chloride 1,000 ML IVC ONE (01:37)
[2019-05-07] MEDS ORDERED: Ibuprofen 600 MG TABLET PO PRN ×2 (01:40→10:31)
--- NOTE | 2019-05-07 02:56 | Acute Care Surgery H&P ---
Date of Encounter: 05/07/19 Time of Encounter: 02:53 Assessment and Plan (1) Abdominal pain Current Visit: Yes Status: Acute 38M s/p lap janes with recent discharge now returns due to PO intolreance; febrile; HDS; CT with concern for bile leak; NPO IVF IV abx US and HIDA scan to evaluate for bile leak; if present will need IR drain placed activity as tolerated no acute surgery The assessment and plan as outlined above was discussed with the patient and/or family members who expressed understanding and agreement. All questions were answered. Qualifiers: Abdominal location: generalized Qualified Code(s): R10.84 - Generalized abdominal pain History of Present Illness Chief complaint: abdominal pain HPI: Mr. Ji is a 38 year old male discharged earlier today who now returns due to persistent PO intolerance while at home. No reports of fevers, chills, chest pain, nor shortness of breath. He returns back to the ED for evaluation where a CT scan was obtained which appears to possibly be a bile leak. No rep orts of jaundice nor scleral icterus; his labs demonstrate a normal total bilirubin. Past Med Surg Social Fam HX - Past Medical History Medical history: arthritis, hypertension, kidney stones Psychiatric history: depression - Past Surgical History Surgical History: herniorrhaphy Additional surgical history: kidney stone - Social History Smoking Status: Never smoker Smokeless Tobacco Status: No Alcohol use: none Drug use: none, other - Additional Family History Additional family history: non contributory Medications and Allergies HydrOXYzine Pamoate [Vistaril] 50 mg PO Q4-6H PRN #20 capsule 04/29/19 [Rx] Lisinopril [Zestril] 10 mg PO DAILY 04/29/19 [History] Omeprazole 20 mg PO DAILY #14 tablet. 04/29/19 [Rx] Allopurinol [Zyloprim 300 MG] 300 mg PO DAILY 05/04/19 [History] Acetaminophen [Tylenol] 325 mg PO Q4HR #30 tablet 05/06/19 [Rx] Ciprofloxacin [Cipro] 500 mg PO BID 5 Days #10 tablet 05/06/19 [Rx] Ibuprofen [Motrin] 800 mg PO Q8HR 5 Days #15 tablet 05/06/19 [Rx] Allergy/AdvReac Type Severity Reaction Status Date / Time No Known Allergies Allergy Verified 05/06/19 21:17 Review of Systems All systems PM: 12 point ROS negative besides HPI findings General Surgery Exam Initial Vital Signs Temp Pulse Resp BP Pulse Ox 97.2 F L 101 16 107/72 98 05/06/19 20:17 05/06/19 20:17 05/06/19 20:17 05/06/19 20:17 05/06/19 20:17 - General physical appearance no distress - Eyes PERRL, normal ocular movement - ENT normal mucosa - Neck trachea midline, no lymphadectomy - Respiratory normal expansion, normal respiratory effort - Cardiovascular Cardiovascular exam: Present: RRR - Abdomen Abdomen general surgery: Present: soft, tender (appropriatley tender on exam) - Incision Incision: Present: clean and dry, intact - Integumentary Integumentary general surgery: Present: warm and dry - Neurologic Present: CN 2-12 grossly intact - Musculoskeletal Present: normal posture - Psychiatric Psychiatric general surgery: Present: A&Ox3 Results - Labs 05/06/19 20:49 05/06/19 20:49 Abnormal lab results RBC 3.90 M/mcL (4.19-5.50) L 05/06/19 20:49 Hgb 11.5 g/dL (12.9-16.9) L 05/06/19 20:49 Hct 35.7 % (37.5-50.1) L 05/06/19 20:49 Carbon Dioxide 30 mEq/L (23-29) H 05/06/19 20:49 BUN 22 mg/dL (6-20) H 05/06/19 20:49 Glucose 117 mg/dL (70-105) H 05/06/19 20:49 Calcium 8.5 mg/dL (8.6-10.3) L 05/06/19 20:49 AST 112 Units/L (13-39) H 05/06/19 20:49 ALT 195 Units/L (7-52) H 05/06/19 20:49 178 Units/L (34-104) H 05/06/19 20:49 3.2 g/dL (3.5-5.7) L 05/06/19 20:49 1.0 (1.1-2.2) L 05/06/19 20:49 Diabetes panel 05/06/19 Range/Units 20:49 Sodium 141 (136-145) mEq/L Potassium 4.7 (3.5-5.1) mEq/L Chloride 106 (98-107) mEq/L Carbon Dioxide 30 H (23-29) mEq/L BUN 22 H (6-20) mg/dL Creatinine 0.92 (0.70-1.30) mg/dL Glucose 117 H (70-105) mg/dL Calcium 8.5 L (8.6-10.3) mg/dL AST 112 H (13-39) Units/L ALT 195 H (7-52) Units/L Alkaline Phosphatase 178 H (34-104) Units/L Albumin 3.2 L (3.5-5.7) g/dL Calcium panel 05/06/19 Range/Units 20:49 Calcium 8.5 L (8.6-10.3) mg/dL Albumin 3.2 L (3.5-5.7) g/dL Pituitary panel 05/06/19 Range/Units 20:49 Sodium 141 (136-145) mEq/L Potassium 4.7 (3.5-5.1) mEq/L Chloride 106 (98-107) mEq/L Carbon Dioxide 30 H (23-29) mEq/L BUN 22 H (6-20) mg/dL Creatinine 0.92 (0.70-1.30) mg/dL Glucose 117 H (70-105) mg/dL Calcium 8.5 L (8.6-10.3) mg/dL Adrenal panel 05/06/19 Range/Units 20:49 Sodium 141 (136-145) mEq/L Potassium 4.7 (3.5-5.1) mEq/L Chloride 106 (98-107) mEq/L Carbon Dioxide 30 H (23-29) mEq/L BUN 22 H (6-20) mg/dL Creatinine 0.92 (0.70-1.30) mg/dL Glucose 117 H (70-105) mg/dL Calcium 8.5 L (8.6-10.3) mg/dL Total Bilirubin 0.6 (0.3-1.0) mg/dL AST 112 H (13-39) Units/L ALT 195 H (7-52) Units/L Alkaline Phosphatase 178 H (34-104) Units/L Albumin 3.2 L (3.5-5.7) g/dL All other labs normal. - Imaging CT scan - abdomen: report reviewed, image reviewed CT scan - pelvis: report reviewed, image reviewed
[2019-05-07] MEDS: D5% in 0.9% NACL 1,000 ML IVC SCH ×2 (03:16→23:48)
[2019-05-07] MEDS: *HR* Heparin 5,000 UNIT/ML VIAL SQ SCH ×3 (05:34→20:15)
[2019-05-07] MEDS ORDERED: Ibuprofen 800 MG TABLET PO PRN (10:49)
[2019-05-07] MEDS: Piperacillin/Tazobactam 3.375 GM in 0.9 % Sodium Chloride Mini Bag 100 ML IVPB SCH ×3 (10:50→23:48)
--- NOTE | 2019-05-07 12:05 | Acute Care Surgery Event Note ---
Date of Encounter: 05/07/19 Time of Encounter: 12:00 HIDA scan reveals no bile leak. Continue non-narcotic pain control. Advance diet. DC tomorrow.
[2019-05-08] MEDS: *HR* Heparin 5,000 UNIT/ML VIAL SQ SCH (05:35)
[2019-05-08 07:34] VITALS: BP 134/85
[2019-05-08] MEDS: Piperacillin/Tazobactam 3.375 GM in 0.9 % Sodium Chloride Mini Bag 100 ML IVPB SCH (08:23)
--- NOTE | 2019-05-08 08:39 | Discharge Summary ---
<Sharon Cartwright - Last Filed: 05/08/19 08:48> - NOTES TO OUTPATIENT PROVIDER Notes to Outpatient Provider: Patient underwent laparoscopic cholecystectomy on 05/04/19 and was discharged on 05/06/19. The patient returned later that night with complaint of decreased by mouth tolerance. CT abdomen and pelvis revealed some fluid along the gallbladder fossa and there was concern for bile leak. HIDA scan was performed and was negative. Patient to continue his ciprofloxacin, ibuprofen, acetaminophen and follow-up with Dr. Bennie Carlson on 05/26/19. Orders not resulted at time of discharge: Pending orders 05/07/19 gall bladder [US] Routine Date of Encounter: 05/08/19 Time of Encounter: 08:35 - Discharge Diagnosis (1) Abdominal pain Priority: Primary Status: Resolved Qualifiers: Abdominal location: generalized Qualified Code(s): R10.84 - Generalized abdominal pain General Surgery Exam Initial Vital Signs Temp Pulse Resp BP Pulse Ox 97.2 F L 101 16 107/72 98 05/06/19 20:17 05/06/19 20:17 05/06/19 20:17 05/06/19 20:17 05/06/19 20:17 - General physical appearance well developed, well nourished, no distress, no pain - Eyes PERRL, normal ocular movement - ENT normal mucosa, no congestion - Respiratory normal expansion, normal respiratory effort, clear to auscultation - Cardiovascular Cardiovascular exam: Present: RRR, no murmurs/rubs/gallops. Absent: JVD - Abdomen Abdomen general surgery: Present: bowel sounds present, soft, non tender. Absent: guarding, rebound - Incision Incision: Present: clean and dry, intact. Absent: draining, erythema - Integumentary Integumentary general surgery: Present: warm and dry, no abnormal pigmentation - Neurologic Present: CN 2-12 grossly intact, normal coordination, normal sensation - Musculoskeletal Present: normal gait, normal posture - Psychiatric Psychiatric general surgery: Present: appropriate, oriented to person, oriented to place, oriented to time, speech is normal, memory intact - Hospital Course Hospital course: Mr. Ji is a 38 year old male who presented for abdominal pain, decreased by mouth tolerance. He underwent laparoscopic cholecystectomy on 05/04/19 and was discharged from that admission on 05/06/19. The patient is in a rehabilitation facility for opiate abuse and is not allowed to have narcotic medications at this facility and was discharged on Motrin, Tylenol. The patient then returned to the emergency department on the evening of 05/06/19 with complaint of nausea, vomiting after eating and abdominal pain. He was afebrile on admission, no leukocytosis and vital signs were stable over the course of admission. A CT abdomen and pelvis was performed which showed interval cholecystectomy with residual postoperative gas and fluid along the gallbladder fossa. Although this may be a normal finding, a small defect in the hepatic parenchyma along the gallbladder fossa raises possibility of a biloma and bile leak. The patient then proceeded to have a HIDA scan for further evaluation and no bile leak was detected. The patient's pain is now controlled with Tylenol, Motrin, nausea has resolved. The patient is well to discharge back to his facility, to continue his antibiotic and Tylenol and Motrin for pain. Vital signs are stable. - Time Spent with Patient Total time spent providing and/or coordinating discharge services: - Discharge Medications Prescriptions: Continued Allopurinol [Zyloprim 300 MG] 300 mg PO DAILY Ciprofloxacin [Cipro] 500 mg PO BID 5 Days #10 tablet Ibuprofen [Motrin] 800 mg PO Q8HR 5 Days #15 tablet Acetaminophen [Tylenol] 325 mg PO Q4HR #30 tablet Lisinopril [Zestril] 10 mg PO DAILY Omeprazole 20 mg PO DAILY #14 tablet. HydrOXYzine Pamoate [Vistaril] 50 mg PO Q4-6H PRN #20 capsule PRN Reason: Rash Home Medications: HydrOXYzine Pamoate [Vistaril] 50 mg PO Q4-6H PRN #20 capsule 04/29/19 [Rx] Lisinopril [Zestril] 10 mg PO DAILY 04/29/19 [History] Omeprazole 20 mg PO DAILY #14 tablet. 04/29/19 [Rx] Allopurinol [Zyloprim 300 MG] 300 mg PO DAILY 05/04/19 [History] Acetaminophen [Tylenol] 325 mg PO Q4HR #30 tablet 05/06/19 [Rx] Ciprofloxacin [Cipro] 500 mg PO BID 5 Days #10 tablet 05/06/19 [Rx] Ibuprofen [Motrin] 800 mg PO Q8HR 5 Days #15 tablet 05/06/19 [Rx] Allergies/Adverse Reactions: Allergy/AdvReac Type Severity Reaction Status Date / Time No Known Allergies Allergy Verified 05/06/19 21:17 Date of admission: 05/07/19 01:52 Primary care physician: PCP NONE Discharging clinician: Sharon Cartwright Anticipated date of discharge: 05/08/19 - Impressions ITS Impressions Abdomen/Pelvis CT 05/06/19 21:43 IMPRESSION: Interval cholecystectomy with residual postoperative gas and fluid along the gallbladder fossa. Although this may be a normal finding, a small defect in the hepatic parenchyma along the gallbladder fossa raises the possibility of a biloma and bile leak. Infection less favored given acuity of surgery. Consideration could be given to a nuclear medicine hepatobiliary scan to assess for bile leak. D/ / Magan Ly / Magan Ly Interpreting Provider: Magan yL Bile Acid Absorption NM 05/07/19 10:00 IMPRESSION: No bile leak is identified. D/ / Matthew Akins MD / Matthew Akins MD Interpreting Provider: Matthew Akins MD - Patient Status Disposition: Transfer Other Condition: Good Overall status at discharge: patient is progressing back to baseline - Discharge Instructions Instructions: Low Fat Diet (DC) Follow Up With: Ramya Renteria [Partnered Physician] - 05/26/19 8:20 am - Diet and Activity Activity: resume usual activities as tolerated Diet: low fat, low cholesterol <Ramya Renteria - Last Filed: 05/08/19 20:03> Orders not resulted at time of discharge: Pending orders 05/07/19 US gall bladder [US] Routine Date of Encounter: 05/08/19 General Surgery Exam Initial Vital Signs Temp Pulse Resp BP Pulse Ox 97.2 F L 101 16 107/72 98 05/06/19 20:17 05/06/19 20:17 05/06/19 20:17 05/06/19 20:17 05/06/19 20:17 - Hospital Course Hospital course: Mr. Ji is a 38 year old male - Time Spent with Patient Total time spent providing and/or coordinating discharge services: Date of admission: 05/07/19 01:52 Primary care physician: PCP NONE - Impressions ITS Impressions Abdomen/Pelvis CT 05/06/19 21:43 IMPRESSION: Interval cholecystectomy with residual postoperative gas and fluid along the gallbladder fossa. Although this may be a normal finding, a small defect in the hepatic parenchyma along the gallbladder fossa raises the possibility of a biloma and bile leak. Infection less favored given acuity of surgery. Consideration could be given to a nuclear medicine hepatobiliary scan to assess for bile leak. D/ / Magan Ly / Magan Ly Interpreting Provider: Magan Ly Bile Acid Absorption NM 05/07/19 10:00 IMPRESSION: No bile leak is identified. D/ / Matthew Akins MD / Matthew Akins MD Interpreting Provider: Matthew Akins MD - Attending Attestation I examined this patient and my medical decision-making was reviewed with the Resident Physician. I agree with the documented findings, disposition and treatment plan as described except to the extent set forth below. Pt is post-op lap janes. He was admitted for post-op nausea and pain. Bile leak was ruled out by HIDA scan. Pt has no complaints today. Pt reports tolerating PO intake. Denies abdominal pain, nausea or vomiting. His condition is satisfactory for DC home. F/U as scheduled.
== END 2019-05-08 09:42 | disposition other institution (70) ==
LOC: 3BNU 20:14 → EMEROOARM 20:14 → 3BNU 05-07 02:25
PROVIDERS: ADMIT Surgery; ATTEND Surgery